=== PATIENT | female | born 1980 | race Caucasian/White ===

== ENCOUNTER → 2016-07-27 | Outpatient (CLI) | payer OTHER ==
[~2016-07-27] MED LIST: BALSALAZIDE DI750 MG PO; BENTYL-DPS10 MG PO; DECADRON-DPS4 MG PO; NORCO 5-325 TA1 EACH PO; TYLENOL DPS325 MG PO; VANCOMYCIN HCL125 MG PO; XANAX DPS0.25 MG PO; ZOFRAN4 MG PO
== END | disposition home or self-care (01) ==
LOC: RAD.S 14:48
DX: Z12.31 Encounter for screening mammogram for malignant neoplasm of breast (principal); Z80.3 Family history of malignant neoplasm of breast